=== PATIENT | born 1990 | race Caucasian/White ===

== ENCOUNTER → 2023-08-01 15:11 | Outpatient (BNVA) | payer BC, MEDICAID, SELFPAY | PROVIDERS: Referring Provider Nurse Practitioner Family; Visit Provider Surgery | DX: Z51.81 Encounter for therapeutic drug level monitoring (principal); K52.9 Noninfective gastroenteritis and colitis, unspecified; K80.20 Calculus of gallbladder without cholecystitis without obstruction; Z79.1 Long term (current) use of non-steroidal anti-inflammatories (NSAID) | CPT/HCPCS: 80048; 80076; 85025 ==

== ENCOUNTER 2023-08-22 05:52 | Day surgery (SDC) | payer BC, MEDICAID, SELFPAY ==
[2023-08-22] VITALS (10 sets, daily range): BP systolic 108–128; BP diastolic 70–87; PULSE 67–88; RESP 12–23; TEMP 36.1–36.4; O2SAT 97–100
--- NOTE | 2023-08-22 05:49 | P.HPUD_ITS ---
Surgery/Procedure H&P Update DATE OF PROCEDURE: August 22, 2023 DATE H&P PERFORMED: 08/01/23 H&P UPDATE INFORMATION: I have reviewed H&P completed within last 30 days, I have examined patient prior to procedure, No changes to prior documentation and [place] is in [facility] [place] on date indicated PLANNED PROCEDURE: Operation Date: 08/22/23 07:00 Proposed Procedures p 60064 lap kristy K80.20(Not Applicable) - Edmond Morrison MD
--- NOTE | 2023-08-22 05:49 | W.PM.OPSUD ---
Surgery/Procedure H&P Update DATE OF PROCEDURE: August 22, 2023 DATE H&P PERFORMED: 08/01/23 H&P UPDATE INFORMATION: I have reviewed H&P completed within last 30 days, I have examined patient prior to procedure, No changes to prior documentation and H&P is in [facility] [place] EMR on date indicated PLANNED PROCEDURE: Operation Date: 08/22/23 07:00 Proposed Procedures p 07650 lap kristy K80.20(Not Applicable) - Edmond Morrison MD
[2023-08-22 06:04] LABS: OR HCG Qualitative Urine Negative (Negative)
[2023-08-22] MEDS: sodium chloride 0.9% 1,000 ML 30 ML IV (06:14)
[2023-08-22] MEDS: ceFAZolin 2,000 MG in sodium chloride 0.9% (plus) 50 ML 100 MG IV (07:06)
[2023-08-22] MEDS: BUPivacaine 0.25% INJ 10 mL INJECTION (07:23)
[2023-08-22] MEDS: lidocaine-epi 2% 20 mL INJ 10 ML INJECTION (07:23)
--- NOTE | 2023-08-22 08:08 | P.OP_ITS ---
Operative Report Date of procedure: August 22, 2023 Pre-op diagnosis: Symptomatic cholelithiasis Post-op diagnosis: Same Post-op findings: Contracted gallbladder, otherwise normal anatomy Procedure done: Laparoscopic cholecystectomy Specimens removed/disposition: Gallbladder Surgeon: Edmond Morrison MD [employer] Reactor Operator: TESHA OR Staff Estimated blood loss: 5 Complications: None apparent Brief History: 32-year old female who presents to the clinic complaining of right upper quadrant pain with ultrasound showing evidence of stones. She was diagnosed with symptomatic cholelithiasis, laparoscopic ostectomy was indicated, after discussion of all the risk and benefits as documented in my preop note we decided to proceed. Procedure: Patient was brought into the OR. She was placed in the supine position. General anesthesia was given. The abdomen was prepped and draped in the usual sterile fashion, timeout was conducted. The abdomen was accessed via open technique with infraumbilical incision, a 12 mm [place] trocar was placed and fixed to the fascia with 0 Vicryl. Pneumoperitoneum was achieved and initial entry show evidence of no visceral injuries. Additional [address] aced in the epigastric right upper quadrant and right flank positions. The patient was placed on the reverse Trendelenburg with left tilt. The gallbladder was retracted cephalad from the fundus, the infundibulum was then retracted on the inferolateral direction to expose the hepatocystic triangle. The peritoneum anterior to the patella cystic triangle was open with electrocautery, this opening was carried on the medial and lateral dissection to the edges of the liver and then up on the sides of the gallbladder to allow better visualization. Careful dissection with [place] and L-hook of the hepatocystic triangle was done until the cystic duct and artery were able to be encircled. The lower third of the gallbladder was elevated from the liver thus achieving a critical view of safety. The cystic duct and artery were double clipped proximally and singly clipped distally and transected, the gallbladder was removed from the liver bed using electrocautery, and gallbladder removal a small hole was created in the posterior gallbladder wall. Therefore, the gallbladder fossa was suctioned and irrigated. The specimen was retrieved via the umbilical trocar site. A secondary inspection of the gallbladder fossa showed hemostatic plane, good position of the clips. The umbilical trocar was removed and the fascia was closed under direct visualization using a 0 Vicryl with a suture passer in a [id number] configuration. The epigastric trocar was removed under direct visualization. The remainder trocars were used to evacuate the pneumoperitoneum and subsequently removed. The wounds were close with #4-0 Monocryl and Dermabond was applied. At the end of the procedure all counts were correct. The patient tolerated well the procedure and was transferred to the PACU in stable condition.
[2023-08-22] MEDS: fentaNYL 50 mcg/mL INJ 2mL IVP (08:29)
[2023-08-22] MEDS: oxyCODONE 5 mg IR Tab/Cap PO (09:39)
[2023-08-22] MEDS: ondansetron 2 mg/ML SDV 2 mL 4 MG IVP (09:39)
--- NOTE | 2023-08-22 12:11 | ANES.PREANE2 ---
Pre-Anesthetic Assessment Height/Weight: Height 1.63 m Weight 79.379 kg Temp Pulse Resp BP Pulse Ox O2 Del Method 97.5 F 68 16 108/87 99 Room Air 08/22/23 09:06 08/22/23 09:48 08/22/23 09:48 08/22/23 09:48 08/22/23 09:48 08/22/23 09:48 Operation Date: 08/22/23 07:00 Proposed Procedures p 70503 lap kristy K80.20(Not Applicable) - Edmond Morrison MD Familial anesthetic complications: none Was Beta Willy taken within 24 hours: N/A Was Clonidine taken within 24 hours: N/A Last intake: Intake Last Liquid Date 08/21/23 Last Liquid Time 22:30 Last Solid Date 08/21/23 Last Solid Time 19:00 Social No alcohol and No tobacco Exam alert, oriented x 3, clear to auscultation bilaterally and regular rate & rhythm Airway Submandibular: within normal limits Cervical ROM: within normal limits Mallampati: Class II Dentition: full Musc/skel Osteoarthritis/DJD Anesthetic Plan ASA status: 2 Anesthesia: General Medications/Allergies Home Medications Medication Instructions Recorded Confirmed Last Taken Type liraglutide 0.6 mg/0.1 mL (18 mg/3 1.8 mg SUBCUT DAILY 08/01/23 08/22/23 08/14/23 History mL) subcutaneous pen injector (Victoza 3-Geovanny) meloxicam 7.5 mg tablet 7.5 mg PO DAILY #7 tabs 08/22/23 Unknown Rx oxycodone 5 mg tablet 5 mg PO Q8H #7 tabs 08/22/23 Unknown Rx Allergies Allergy/AdvReac Type Severity Reaction Status Date / Time No Known Allergies Allergy Unverified 08/01/23 14:08 [facility] Anesthesia Family History (Updated 08/01/23 @ 14:09 by MOSHE Reynolds) Mother Colon cancer Female Reproductive History Date of last menstrual period: 07/27/23 Data Anesthesia Cardiac Studies: No Data to Display
--- NOTE | 2023-08-22 15:53 | ANE.PACU2 ---
Inpatient post-anesthesia follow up: Airway intact: Yes Vital signs: Temperature 97.5 F Pulse Rate 68 Respiratory Rate 16 Blood Pressure 108/87 Pulse Oximetry 99 Oxygen Delivery Me thod Room Air Oxygen Flow Rate Fraction of Inspir ed Oxygen Hydration adequate: Yes Nausea and vomiting: No Pain level: 2 Mental status: Baseline
== END 2023-08-22 10:35 | disposition home or self-care (01) ==
PROVIDERS: Visit Provider Surgery
PROC: 0FT44ZZ Resection of Gallbladder, Percutaneous Endoscopic Approach (ICD-10-PCS; CPT 47562; principal; 2023-08-22 07:00)
DX: K80.10 Calculus of gallbladder with chronic cholecystitis without obstruction (principal)
CPT/HCPCS: 47562; 81025; 84703; 88304; A4216; J0690; J1100; J2371; J2405; J2704; J3010; J3490; J7030